=== PATIENT | female | born 1940 | race Caucasian/White ===

== ENCOUNTER → 2017-01-29 | Outpatient (CLI) | payer MEDICARE ==
[2017-01-29 09:24] LABS: Albumin 3.7 g/dL (3.4-5.0); BUN/Creatinine Ratio 21.5; Bilirubin, Total 0.7 mg/dL (0.2-1.0); Total Protein 7.8 g/dL (6.4-8.2)
== END | disposition home or self-care (01) ==
LOC: LAB 06:53
PROVIDERS: ATTEND Internal Medicine
DX: I10 Essential (primary) hypertension (principal); M79.89 Other specified soft tissue disorders; Z79.899 Other long term (current) drug therapy
CPT/HCPCS: 36415; 80053; 82465; 83036; 83718; 83721; 84443; 84478; 86141

== ENCOUNTER 2018-08-13 06:54 | Inpatient (IN) | payer MEDICARE | END 2018-08-16 15:00 | disposition home health service (06) | LOC: ER 06:54 → OVERFLOW 11:32 → WEST WING 17:50 | DX: L03.116 Cellulitis of left lower limb (principal); I10 Essential (primary) hypertension; M19.90 Unspecified osteoarthritis, unspecified site; I89.0 Lymphedema, not elsewhere classified; L03.115 Cellulitis of right lower limb ==

== ENCOUNTER → 2018-10-23 | Outpatient (CLI) | payer MEDICARE ==
[~2018-10-23] MED LIST: LISI10TA6 PO
== END | disposition home or self-care (01) ==
LOC: LAB 09:04
PROVIDERS: ATTEND Internal Medicine
DX: L03.116 Cellulitis of left lower limb (principal); I11.0 Hypertensive heart disease with heart failure; I50.9 Heart failure, unspecified
CPT/HCPCS: 36415; 82565; 84520

== ENCOUNTER 2018-12-17 09:35 | Inpatient (IN) | payer MEDICARE ==
[~2018-12-17] VITALS: Ht 162.6 cm; Wt 102.0 kg
[2018-12-17] MEDS ORDERED: SODIUM CHLORIDE 0.9% 1,000 ML IV ONE ×2 (10:01)
[2018-12-17] MEDS ORDERED: CLINDAMYCIN 600MG IV 50 ML IV ONE (10:15)
[2018-12-17] MEDS ORDERED: PIPERACILLIN-TAZOB 3.375GM 100 ML IV ONE (10:15)
[2018-12-17 10:20] LABS: Basophils # (auto) 0.1 uL; Basophils % (auto) 0.8 % (0.0-2.0); Eosinophils # (auto) 0.1 uL; Eosinophils % (auto) 1.1 % (0.0-7.0); Hematocrit 46.4 % (36.0-46.0); Hemoglobin 15.1 g/dL (12.2-16.2); Lymphocytes # (auto) 1.5 uL; Lymphocytes % (auto) 21.6 % (10.0-50.0); Mean Corpuscular Hemoglobin 28.6 pg (28.0-32.0); Mean Corpuscular Hgb Conc. 32.5 g/dL (32.0-36.0); Monocytes # (auto) 0.5 uL; Neutrophils # (auto) 4.8 uL; Neutrophils % (auto) 69.5 % (37.0-80.0); Platelet Count (auto) 332 10^3/uL (140-450); Red Blood Cells 5.27 10^6/uL (4.0-5.20); Red Cell Distribution Width 14.4 % (11.8-14.3); White Blood Cell 6.9 10^3/uL (4.4-10.8)
[2018-12-17 10:35] LABS: INR 1.03 (0.9-1.15); Partial Thromboplastin Time 31.3 sec (23.64-32.05)
[2018-12-17 10:41] LABS: Albumin 3.3 g/dL (3.4-5.0); Calcium 9.1 mg/dL (8.5-10.1); Potassium 3.7 mmol/L (3.5-5.1)
[2018-12-17 10:43] LABS: BUN/Creatinine Ratio 13.5
[2018-12-17 10:45] LABS: Bilirubin, Total 0.8 mg/dL (0.2-1.0); Total Protein 7.8 g/dL (6.4-8.2)
[2018-12-17 11:04] LABS: Urine Bacteria NONE SEEN /hpf (None Seen); Urine Blood Negative /uL (Negative); Urine Mucus FEW (None Seen); Urine Specific Gravity 1.011 (1.001-1.035); Urine WBC <1 /hpf (0 - 5)
[2018-12-17] MEDS: FUROSEMIDE 40 MG/4 ML VIAL IV ONE ×2 (13:00→13:51)
[2018-12-17] MEDS ORDERED: HYDROcodone-ACET 5/325MG TAB PO PRN (13:00)
[2018-12-17] MEDS ORDERED: MORPHINE SULF INJ 2 MG/ML SYRINGE 1ML IV PRN (13:00)
[2018-12-17] MEDS ORDERED: POTASSIUM CHL 20 Meq TABLET PO ONE (13:00)
[2018-12-17] MEDS ORDERED: ONDANSETRON HCL 4 MG/2 ML VIAL IV PRN (13:00)
[2018-12-17] MEDS ORDERED: VANCOMYCIN PER PHARMACY 0 MG IV SCH (13:00)
[2018-12-17] MEDS: POTASSIUM CHL 20 Meq TABLET PO SCH (13:51)
[2018-12-17] MEDS: VANCOMYCIN 500 MG in D5W 5% 100 ML IV SCH (16:24)
[2018-12-17 17:00] VITALS: BP 142/76
[2018-12-17] MEDS: PIPERACILLIN-TAZOB 3.375GM 100 ML IV SCH ×2 (18:25→23:40)
--- NOTE | 2018-12-17 20:00 | NUR ---
OPENING NOTE RECEIVED REPORT FROM DAYSHIFT RN. ASSUMING ROLE OF CARE OF PATIENT AT THIS TIME. PATIENT SHOWING NO SIGN OF DISTRESS, SHORTNESS OF BREATH, AND PATIENT DENIES ANY PAIN AT THIS TIME. PATIENT EDUCATED ON PLAN OF CARE FOR THE NIGHT AND PATIENT VERBALIZED UNDERSTANDING. DRESSINGS TO LOWER EXTREMITIES ARE CLEAN DRY AND INTACT AT THIS TIME. BED LOWERED, CALL LIGHT WITHIN REACH, AND PATIENT WILL BE ROUNDED ON EVERY HOUR AND NEEDED.
[2018-12-17] MEDS: GABAPENTIN 300 MG CAP PO SCH (21:08)
[2018-12-17 22:00] VITALS: BP 137/64
[2018-12-18] MEDS: VANCOMYCIN 500 MG in D5W 5% 100 ML IV SCH ×2 (04:00→18:00)
--- NOTE | 2018-12-18 04:30 | NUR ---
LEFT LEG DRESSING CHANGE LEFT LEG SHOWING DRAINAGE. DRESSING ON LEFT LEG CHANGED AND IS CLEAN DRY AND INTACT.
[2018-12-18 05:00] VITALS: BP 130/65
[2018-12-18] MEDS: PIPERACILLIN-TAZOB 3.375GM 100 ML IV SCH ×4 (05:27→23:31)
[2018-12-18 05:59] LABS: Basophils # (auto) 0.1 uL; Basophils % (auto) 1.2 % (0.0-2.0); Eosinophils # (auto) 0.1 uL; Eosinophils % (auto) 1.5 % (0.0-7.0); Hematocrit 40.9 % (36.0-46.0); Hemoglobin 13.5 g/dL (12.2-16.2); Lymphocytes # (auto) 1.5 uL; Lymphocytes % (auto) 24.7 % (10.0-50.0); Mean Corpuscular Hemoglobin 28.8 pg (28.0-32.0); Mean Corpuscular Volume 87.3 fL (80.0-100.0); Monocytes # (auto) 0.7 uL; Monocytes % (auto) 12.5 % (0.0-12.0); Neutrophils # (auto) 3.6 uL; Neutrophils % (auto) 60.1 % (37.0-80.0); Platelet Count (auto) 275 10^3/uL (140-450); Red Blood Cells 4.68 10^6/uL (4.0-5.20); Red Cell Distribution Width 14.3 % (11.8-14.3); White Blood Cell 5.9 10^3/uL (4.4-10.8)
[2018-12-18 06:21] LABS: Potassium 3.7 mmol/L (3.5-5.1)
[2018-12-18 06:25] LABS: BUN/Creatinine Ratio 12.9; Calcium 8.5 mg/dL (8.5-10.1)
[2018-12-18 08:04] VITALS: BP_SYST 147
--- NOTE | 2018-12-18 08:04 | NUR ---
Opening Shift Note Assumed care of patient, awake and alert. No S/S of distress/SOB or pain. Instructed on POC and to call for assist PRN, will continue to monitor for changes Q1hr and PRN.
[2018-12-18 09:00] VITALS: BP 132/65
[2018-12-18] MEDS: POTASSIUM CHL 20 Meq TABLET PO SCH (10:00)
[2018-12-18] MEDS: FUROSEMIDE 40 MG TAB PO SCH (10:00)
--- NOTE | 2018-12-18 10:20 | NUR ---
PATIENT REFUSING LASIX Patient refused Lasix. Patient was educated regarding the need for Lasix to help reduce swelling in both legs. Patient verbalized understanding. Patient stated that Lasix does not help her. Patient stated that she will take Lasix at home. Patient verbalized concerns about having to go pee a lot if she takes it here and not being able to get to the bathroom fast enough. Patient was offered bedside commode and was educated regarding using the call light if she needs to use the restroom. Patient verbalized understanding and continued to refuse Lasix.
[2018-12-18] MEDS: ENOXAPARIN SOD 40 MG/0.4 ML SYRINGE SC SCH (10:31)
[2018-12-18] MEDS: GABAPENTIN 300 MG CAP PO SCH ×2 (10:31→21:33)
[2018-12-18 13:00] VITALS: BP 131/69
--- NOTE | 2018-12-18 13:15 | NUR ---
at bedside Dr. Wallace at bedside discussing plan of care with patient and this RN.
--- NOTE | 2018-12-18 13:29 | NUR ---
Wedge Pillow Legs are elevated on a wedge pillow at this time per doctor's orders.
--- NOTE | 2018-12-18 16:30 | NUR ---
Call to Pharmacy [facility] is not on floor. Pharmacist states that it will be sent up soon.
--- NOTE | 2018-12-18 16:45 | NUR ---
WOUND CARE NOTE: Wound care consult received for cellulitis with left leg. Patient is a 78yo female admitted for left leg cellulitis. Patient with a history of chronic lymphedema, and questionable hypertension. Patient is alert and denies pain. Last Geovanni is 16. Patient with cellulitis and draining wound noted to left leg. Reviewed photos and discussed with bedside RNAzalea. Patient has been refusing prescribed diuretics. RECOMMENDATIONS: Dietary consult; Turn q2hrs; Nursing to cleanse bilateral lower extremities with mild soap and water, pat dry, cover open wounds to leg with OPTILOCK dressing, wrap with kerlex gauze, change every other day and PRN soiling; wound care team to follow. Addendum: 12/18/18 at 1906 by LUIS ENRIQUE LOUIE RN Amended: Links added.
[2018-12-18 16:55] VITALS: BP 128/63
--- NOTE | 2018-12-18 17:30 | NUR ---
Call to pharmacy Call to pharmacy at this time. Vanco is still not on floor. Pharmacist states that it will be up, "she left about 10 minutes ago." Asked pharmacist if it should be rescheduled. Pharmacist states, "No, just give it when you get it." Awaiting vanco dose.
--- NOTE | 2018-12-18 17:45 | NUR ---
Wound Care Changed patient's dressings to bilateral lower extremities at this time, using absorbent dressings from wound care. Left leg was beginning to weep through dressing. No distress noted.
--- NOTE | 2018-12-18 17:53 | NUR ---
Re: Vanco Dose Vanco has not been delivered to unit. Will administer 1800 antibiotic of zosyn at this time. Still awaiting zosyn dose.
--- NOTE | 2018-12-18 18:53 | NUR ---
Closing Shift Note Patient is resting in bed. Family at bedside. No distress noted. Will endorse care to the machinist 2nd shift RN.
--- NOTE | 2018-12-18 20:00 | NUR ---
RECEIVED PATIENT IN BED, AAOX4. NO DISTRESS NOTED. INTRODUCED MYSELF TO THE PATIENT. ORIENTATION DONE. AFEBRILE. NO SOB NOTED. BLE SWELLING WITH KERLIX DRESSING NOTED. POCS DISCUSSED WITH PATIENT AND SHOWED UNDERSTANDING. BED KEPT ON LOWEST POSITION. SIDE RAILS UP. CALL LIGHT/TABLE IN REACH. KEPT COMFORTABLE.
[2018-12-18 22:00] VITALS: BP 135/48
--- NOTE | 2018-12-18 23:00 | NUR ---
IV SITE IS RED AND PAINFUL PER PATIENT. REMOVED OLD IV ACCESS AND ASEPTIC DRESSING APPLIED. STARTED A NEW IV ACCESS ON THE LEFT WRIST, GAUGE 22. BENIGN AND PATENT.
[2018-12-19] MEDS: VANCOMYCIN 500 MG in D5W 5% 100 ML IV SCH (03:52)
[2018-12-19 05:00] VITALS: BP 123/53
[2018-12-19] MEDS: PIPERACILLIN-TAZOB 3.375GM 100 ML IV SCH ×3 (05:59→18:12)
--- NOTE | 2018-12-19 06:14 | NUR ---
ON BED, ASLEEP. NO DISTRESS NOTED. FOR MORE CARE AND MANAGEMENT.
[2018-12-19 08:00] VITALS: BP 130/67
--- NOTE | 2018-12-19 08:00 | NUR ---
Opening Shift Note Assumed care of patient, awake and alert. No S/S of distress/SOB. Patient reports 3/10 pain in her left leg. Patient refused pain medication at this time. Instructed on POC and to call for assist PRN, will continue to monitor for changes Q1hr and PRN.
[2018-12-19 09:00] VITALS: BP 130/67
[2018-12-19] MEDS: POTASSIUM CHL 20 Meq TABLET PO SCH (10:00)
[2018-12-19] MEDS: GABAPENTIN 300 MG CAP PO SCH ×2 (10:00→21:22)
[2018-12-19] MEDS: FUROSEMIDE 40 MG TAB PO SCH (10:00)
--- NOTE | 2018-12-19 10:00 | NUR ---
PATIENT REFUSING LASIX Patient educated regarding the use of Lasix to reduce swelling in both legs. Patient verbalized understanding. Patient continued to refuse Lasix.
[2018-12-19] MEDS: ENOXAPARIN SOD 40 MG/0.4 ML SYRINGE SC SCH (10:28)
--- NOTE | 2018-12-19 11:10 | NUR ---
Dr. Wallace at bedside with patient discussing plan of care. Dr. Wallace is aware that the patient is refusing Lasix.
--- NOTE | 2018-12-19 12:42 | NUR ---
D/C Planning Per SS consult for home health for wound care. Information and choice letter was given to Pt at bedside. Pt stated she is currently seeing a MD Suarez at [facility] Ph:( [phone]) [id number] [facility] [id number] on Mondays and Sunday-Sunday her helps her care for her wound. Pt stated at the moment she does not want home health service. Pt verbalize understanding. Informed SMILEY Tristan.
[2018-12-19 13:00] VITALS: BP 138/72
--- NOTE | 2018-12-19 13:56 | NUR ---
VANCOMYCIN DOSE CLARIFICATION Spoke with Jonas from pharmacy regarding clarification for vancomycin dose. Jonas stated the patient should be getting 1 gram and will D/C the other vancomycin order.
--- NOTE | 2018-12-19 14:40 | NUR ---
Wound care performed at this time on patient's left leg. Scant amount of blood and moderate amount of serous drainage noted. New Optilock placed with Kerlix per wound care nurse recommendation.Patient is not in distress at this time and has no complaints.
[2018-12-19] MEDS: VANCOMYCIN 1GM/250ML 250 ML IV SCH (16:50)
[2018-12-19 17:04] VITALS: BP 134/58
--- NOTE | 2018-12-19 19:21 | NUR ---
Closing Shift Note Patient is resting in bed. No distress noted. Report given. Will endorse care to the warehouse supervisor 3rd shift RN.
--- NOTE | 2018-12-19 19:40 | NUR ---
Opening Shift Note Report received from day shift RN. Assumed care of patient. Patient awake sitting in bed and alert x4. No S/S of distress/SOB noted. Patient complains of tolerable pain to her legs. Patient refuses any pain medication at this time. Dressings to both legs clean, dry, and intact. Instructed on POC and to call for assist PRN. Call light left within reach. Will continue to monitor for changes Q1hr and PRN.
[2018-12-19 23:45] VITALS: BP 130/50
[2018-12-20] MEDS: PIPERACILLIN-TAZOB 3.375GM 100 ML IV SCH ×3 (00:13→12:07)
[2018-12-20] MEDS: VANCOMYCIN 1GM/250ML 250 ML IV SCH (03:42)
[2018-12-20 05:25] VITALS: BP 147/64
--- NOTE | 2018-12-20 08:00 | NUR ---
RECEIVED PATIENT ALERT AND ORIENTED X4, NOT IN DISTRESS, CLEAR LS IN BILATERAL UPPER AND DIMINISHED IN LOWER LUNG LOBES, RR=18 ST=91% WITH O2 2L NC, HEART R=76, DENIED CHEST PAIN OR SOB, ABDOMEN SOFT AND ROUND WITH ACTIVE BS, LAST BM=12/18/18 REPORTED, GENERAL SKIN INTACT WARM TO TOUCH, RADIAL AND PEDAL PULSES PALPABLE, CAP REFILL <3 SECONDS, BILATERAL LEG WOUNDS COVERED WITH DRY AND INTACT DRESSING, AMBULATES TO WITH OUT ASSISTANCE, TOLERATING WELL, RESTING ON BED, HEAD OF BED ELEVATED, BED ON LOWER POSITION RAILS UP X2, CALL LIGHT ON REACH, WILL CONTINUE MONITORING.
[2018-12-20 09:00] VITALS: BP 136/59
[2018-12-20] MEDS: GABAPENTIN 300 MG CAP PO SCH ×2 (09:22→09:47)
[2018-12-20] MEDS: ENOXAPARIN SOD 40 MG/0.4 ML SYRINGE SC SCH (09:22)
[2018-12-20] MEDS: POTASSIUM CHL 20 Meq TABLET PO SCH ×2 (09:24→09:46)
[2018-12-20] MEDS: FUROSEMIDE 40 MG TAB PO SCH ×2 (09:24→09:46)
--- NOTE | 2018-12-20 11:00 | NUR ---
REFUSED AM PO MEDICATIONS, RESTING ON BED, NOT IN DISTRESS, DENIED PAIN, WILL CONTINUE MONITORING.
--- NOTE | 2018-12-20 12:10 | NUR ---
NOT IN DISTRESS, RESTING ON BED, PENDING D/C HOME TODAY.
[2018-12-20 12:20] VITALS: BP 130/67
[2018-12-20 13:00] VITALS: BP 146/73
--- NOTE | 2018-12-20 15:58 | NUR ---
D/C INSTRUCTIONS WERE GIVEN, VERBALIZED UNDERSTANDING, SS CONSULT PROVIDED ORDERED, FOLLOW UP APPOINTMENT WILL BE DONE BY CALLING FROM HOME REPORTED, MEDICATION PRESCRIPTIONS EDUCATION PROVIDED, VERBALIZED UNDERSTANDING, WOUND EVALUATION PICTURES TAKEN, WOUND DRESSING WAS CHANGED ORDERED, TOLERATED WELL, D/C IV SITE TOLERATED WELL, NOT IN DISTRESS, DENIED PAIN, VS T=97.7 RR=18 SA=92% P=76 LR=566/60, D/C HOME NO WC ACCOMPANIED BY , TOOK ALL BELONGINGS AND LEFT NOTING BEHIND.
== END 2018-12-20 18:51 | disposition home or self-care (01) | DRG 602 ==
LOC: ER 09:35 → OVERFLOW 09:36 → WEST WING 15:18
PROVIDERS: ADMIT Internal Medicine; ATTEND Internal Medicine
DX: L03.116 Cellulitis of left lower limb (principal); I50.33 Acute on chronic diastolic (congestive) heart failure; E66.01 Morbid (severe) obesity due to excess calories; I11.0 Hypertensive heart disease with heart failure; I89.0 Lymphedema, not elsewhere classified; Z68.38 Body mass index [BMI] 38.0-38.9, adult
CPT/HCPCS: 36415; 71046; 73700; 80048; 80053; 80202; 81001; 83605; 83880; 84484; 85025; 85610; 85730; 87040; 93970; 96361; 96365; 96367; G0378; J2543; J3490; J7060

== ENCOUNTER 2022-03-28 09:13 | Emergency (ER) | payer MEDICARE ==
[~2022-03-28] VITALS: Ht 162.6 cm; Wt 101.7 kg
[~2022-03-28 09:13] MED LIST changes: +LISI-716 PO; -LISI10TA6 PO
[2022-03-28 10:34] LABS: Basophils # (auto) 0.1 10 ^3/uL (0-0.2); Basophils % (auto) 0.8 % (0.0-2.0); Eosinophils # (auto) 0 10 ^3/uL (0-0.8); Eosinophils % (auto) 0.6 % (0.0-7.0); Hematocrit 44.2 % (36.0-46.0); Hemoglobin 14.6 g/dL (12.2-16.2); Lymphocytes # (auto) 1.1 10 ^3/uL (0.4-5.4); Lymphocytes % (auto) 16.5 % (10.0-50.0); Mean Corpuscular Hemoglobin 29.4 pg (28.0-32.0); Mean Corpuscular Hgb Conc. 33.1 g/dL (32.0-36.0); Monocytes # (auto) 0.5 10 ^3/uL (0-1.3); Monocytes % (auto) 7.2 % (0.0-12.0); Neutrophils # (auto) 5.1 10 ^3/uL (1.6-8.6); Neutrophils % (auto) 74.9 % (37.0-80.0); Red Blood Cells 4.97 10^6/uL (4.0-5.20); Red Cell Distribution Width 12.7 % (11.8-14.3); White Blood Cell 6.8 10^3/uL (4.4-10.8)
[2022-03-28 10:52] LABS: Albumin 3.8 g/dL (3.4-5.0); Calcium 9.5 mg/dL (8.5-10.1); Potassium 4.3 mmol/L (3.5-5.1)
[2022-03-28 10:56] LABS: BUN/Creatinine Ratio 19.5; Bilirubin, Total 0.6 mg/dL (0.2-1.0); Total Protein 8.2 g/dL (6.4-8.2)
[2022-03-28 11:41] LABS: Urine Bacteria NONE SEEN /hpf (None Seen); Urine Blood Negative /uL (Negative); Urine Specific Gravity 1.013 (1.001-1.035); Urine WBC 5 /hpf (0 - 5)
[2022-03-28 12:23] LABS: INR 1.05 (0.9-1.15); Partial Thromboplastin Time 34.5 sec (24.6-33.4)
[2022-03-28 18:27] LABS: Basophils # (auto) 0.1 10 ^3/uL (0-0.2); Basophils % (auto) 0.8 % (0.0-2.0); Eosinophils # (auto) 0.1 10 ^3/uL (0-0.8); Eosinophils % (auto) 0.7 % (0.0-7.0); Hematocrit 44.5 % (36.0-46.0); Hemoglobin 14.6 g/dL (12.2-16.2); Lymphocytes # (auto) 1.7 10 ^3/uL (0.4-5.4); Lymphocytes % (auto) 19.9 % (10.0-50.0); Mean Corpuscular Hemoglobin 29.6 pg (28.0-32.0); Mean Corpuscular Hgb Conc. 32.7 g/dL (32.0-36.0); Mean Corpuscular Volume 90.3 fL (80.0-100.0); Monocytes # (auto) 0.7 10 ^3/uL (0-1.3); Monocytes % (auto) 7.8 % (0.0-12.0); Neutrophils # (auto) 6.1 10 ^3/uL (1.6-8.6); Neutrophils % (auto) 70.8 % (37.0-80.0); Nucleated Red Blood Cells % 0.4 %; Red Blood Cells 4.94 10^6/uL (4.0-5.20); Red Cell Distribution Width 12.9 % (11.8-14.3); White Blood Cell 8.6 10^3/uL (4.4-10.8)
[2022-03-28 18:42] LABS: Albumin 3.6 g/dL (3.4-5.0); Calcium 9.6 mg/dL (8.5-10.1); Potassium 4.2 mmol/L (3.5-5.1)
[2022-03-28 18:44] LABS: BUN/Creatinine Ratio 22.4
[2022-03-28 18:47] LABS: Bilirubin, Total 0.7 mg/dL (0.2-1.0); Total Protein 7.3 g/dL (6.4-8.2)
[2022-03-28 19:55] LABS: INR 1.07 (0.9-1.15)
[2022-03-28] MEDS ORDERED: IOHEXOL 350 MG/ML 100ML IJ ONE (19:59)
[2022-03-28 20:00] VITALS: BP 135/52
[2022-03-28] MEDS ORDERED: DOXYCYCLINE 100 MG TAB/CAP PO ONE (21:15)
[2022-03-28] MEDS ORDERED: SILV1CRE98 EX (21:37)
[2022-03-28] MEDS ORDERED: DOXY-286 PO (21:37)
== END 2022-03-28 21:57 | disposition home or self-care (01) ==
LOC: ER 09:13
DX: L03.116 Cellulitis of left lower limb (principal); N28.89 Other specified disorders of kidney and ureter; R91.1 Solitary pulmonary nodule; I10 Essential (primary) hypertension; R51.9 Headache, unspecified; Z20.822 Contact with and (suspected) exposure to COVID-19
CPT/HCPCS: 36415; 70450; 71045; 71275; 80053; 81001; 83605; 83735; 83880; 84484; 85025; 85379; 85610; 85730; 87040; 87426; 93005; 93970; 99285; Q9967

== ENCOUNTER → 2022-04-04 | Outpatient (CLI) | payer MEDICARE ==
[~2022-04-04] MED LIST changes: +DOXY-286 PO; +SILV1CRE98 EX
== END | disposition home or self-care (01) ==
LOC: LAB 10:56
PROVIDERS: ATTEND Internal Medicine
DX: R63.5 Abnormal weight gain (principal); N28.89 Other specified disorders of kidney and ureter; R91.1 Solitary pulmonary nodule
CPT/HCPCS: 36415; 82565; 84443

== ENCOUNTER 2025-01-09 08:10 | Inpatient (IN) | payer MEDICARE ==
[~2025-01-09] VITALS: Ht 162.6 cm; Wt 100.1 kg
[~2025-01-09 08:10] MED LIST changes: -LISI-716 PO; +LISI10TA34 PO
--- NOTE | 2025-01-09 08:47 | ED.PDOC ---
History of Present Illness(SKN HPI Comments 84 y.o female with PMHx of lymphedema, presents to the ED for an evaluation of wound check on lower extremity. Patient has a home health care whole wraps patient's legs daily and noticed swelling with possible swelling given oozing wounds with a possible insect bite on the posterior thigh. Patient also states nurse wrapped her legs today but noticed maggots to wound site. No chills, nausea, vomiting reported. Patient did have a fever last week but presents afebrile upon ED arrival. Chief Complaint: Lower Extremity Time Seen by MD: 08:37 Primary Care Provider: WILI History of Present Illness: Nurses Notes, Medications, Allergies Allergies: Coded Allergies: NO KNOWN ALLERGIES (Unverified , 08/13/18) Home Meds Active Scripts Silver Sulfadiazine (Ssd) 1 % Cre, 1 % EX BID for 14 Days, #100 CRE Prov:CAMDENLISAJILLIANJESSICA S DO 03/28/22 Doxycycline Hyclate (DOXYCYCLINE HYCLATE) 100 Mg Tab, 1 TAB PO BID for 14 Days, #28 TAB Prov:CAMDENLISACASANDRA DO 03/28/22 Reported Medications Lisinopril (Lisinopril) 10 Mg Tab, 10 MG PO DAILY for 30 Days, MG 08/14/18 Information Source: Patient, Friend Mode of Arrival: Wheelchair Severity: Moderate Duration: Since onset Location: Extremities, Leg Mechanism: Preceding Wound Object: None Condition of Object: None Wound Type: Abscess Associated Signs and Symptoms: Redness, Swelling, Pain Past Medical History PAST MEDICAL HISTORY: HTN Past Medical History (Other): lymphedema Surgical History: Denies all surgeries RUBBER MOLD MAKER History: No Pertinent RUBBER MOLD MAKER History Family History Family History: Family hx of HTN, Family hx of stroke Social History Smoker: Non-Smoker Alcohol: Denies ETOH Use Drugs: Other Lives In: Home Constitutional: denies: chills, diaphoresis, fatigue, fever, malaise, sweats, weakness, others EENTM: denies: blurred vision, double vision, ear bleeding, ear discharge, ear drainage, ear pain, ear ringing, eye pain, eye redness, hearing loss, mouth pain, mouth swelling, nasal discharge, nose bleeding, nose congestion, nose pain, photophobia, tearing, throat pain, throat swelling, voice changes, others Respiratory: denies: cough, hemoptysis, orthopnea, SOB at rest, shortness of breath, SOB with excertion, stridor, wheezing, others Cardiovascular: denies: chest pain, dizzy spells, diaphoresis, Dyspnea on exertion, edema, irregular heart beat, left arm pain, lightheadedness, palpitations, PND, syncope, others Gastrointestinal: denies: abdomen distended, abdominal pain, blood streaked bowels, constipated, diarrhea, dysphagia, difficulty swallowing, hematemesis, melena, nausea, poor appetite, poor fluid intake, rectal bleeding, rectal pain, vomiting, others Genitourinary: denies: abnormal vagina bleeding, burning, dyspareunia, dysuria, flank pain, frequency, hematuria, incontinence, pain, , vagina discharge, urgency, others Neurological: denies: dizziness, fainting, headache, left sided numbness, left sided weakness, numbness, paresthesia, pre-existing deficit, right sided numbness, right sided weakness, seizure, speech problems, tingling, tremors, weakness, others Musculoskeletal: denies: back pain, gout, joint pain, joint swelling, muscle pain, muscle stiffness, neck pain, others Integumetry: reports: wounds; denies: bruises, change in color, change in hair/nails, dryness, laceration, lesions, lumps, rash, others Allergic/Immunocompromised: denies: Difficulty Healing, Frequent Infections, Hives, Itching, others Hematologic/Lymphatic: denies: anemia, blood clots, easy bleeding, easy bruising, swollen glands, others Endocrine: denies: excessive hunger, excessive sweating, excessive thirst, excessive urination, flushing, intolerance to cold, intolerance to heat, unexplained weight gain, unexplained weight loss, others Psychiatric: denies: anxiety, bipolar disorder, depression, hopeless, panic disorder, schizophrenia, sleepless, suicidal, others All Other Systems: Reviewed and Negative Physical Exam General Appearance: Moderate Distress, Obese HEENT: Normal ENT Inspection, Pharynx Normal, TMs Normal Neck: Full Range of Motion, Non-Tender, Normal, Normal Inspection Respiratory: Chest Non-Tender, Lungs Clear, No Accessory Muscle Use, No Respiratory Distress, Normal Breath Sounds Cardiovascular: No Edema, No JVD, No Murmur, No Gallop, Normal Peripheral Pulses, Regular Rate/Rhythm Breast Exam: Deferred Gastrointestinal: No Organomegaly, Non Tender, No Pulsatile Mass, Normal Bowel Sounds, Soft Genitalia: Deferred Pelvic: Deferred Rectal: Deferred Extremities: Inflammation, Normal capillary refill, Pedal edema, Other (There wounds to the back of the left leg as well.) Musculoskeletal : Apperance: Normal Neurologic: Alert, paving stone installer II-XII nml as Tested, No Motor Deficits, Normal Affect, Normal Mood, No Sensory Deficits Cerebellar Function: Normal Reflexes: Normal Skin: Dry, Normal Color, Warm Lymphatic: No Adenopathy Was a procedure done? Was a procedure done?: No Differential Diagnosis (INTG) Differential Diagnosis: Cellulitis Differential Diagnosis: Abscess, Erythema multiforme, Erysipelas, Gangrene X-Ray, Labs, Meds, VS Vital Signs Date Time Temp Pulse Resp B/P (MAP) Pulse Ox O2 Delivery O2 Flow Rate FiO2 01/09/25 08:13 97.7 87 18 140/74 96 97.7 Lab Test 01/09/25 09:20 Range/Units White Blood Count 7.2 4.4-10.8 10^3/uL Red Blood Count 4.49 4.0-5.20 10^6/uL Hemoglobin 13.3 12.2-16.2 g/dL Hematocrit 39.4 36.0-46.0 % Mean Corpuscular Volume 87.8 80.0-100.0 fL Mean Corpuscular Hemoglobin 29.6 28.0-32.0 pg Mean Corpuscular Hemoglobin Concent 33.7 32.0-36.0 g/dL Red Cell Distribution Width 13.8 11.8-14.3 % Platelet Count 244 140-450 10^3/uL Mean Platelet Volume 9.5 6.9-10.8 fL Neutrophils (%) (Auto) 37.0-80.0 % Lymphocytes (%) (Auto) 10.0-50.0 % Monocytes (%) (Auto) 0.0-12.0 % Basophils (%) (Auto) 0.0-2.0 % Neutrophils # (Auto) 1.6-8.6 10 ^3/uL Lymphocytes # (Auto) 0.4-5.4 10 ^3/uL Monocytes # (Auto) 0-1.3 10 ^3/uL Differential Total Cells Counted Pending Neutrophils % (Manual) Pending Band Neutrophils % (Manual) Pending Lymphocytes % (Manual) Pending Monocytes % (Manual) Pending Eosinophils % (Manual) Pending Basophils % (Manual) Pending Metamyelocytes % (manual) Pending Myelocytes % (Manual) Pending Promyelocytes % (Manual) Pending Blast Cells % (Manual) Pending Reactive Lymphocytes Pending Platelet Estimate Pending Sodium Level Pending Potassium Level Pending Chloride Level Pending Carbon Dioxide Level Pending Anion Gap Pending Blood Urea Nitrogen Pending Creatinine Pending Glomerular Filtration Rate Calc Pending BUN/Creatinine Ratio Pending Serum Glucose Pending Calcium Level Pending Current Medications Medications (Trade) Dose Ordered Sig/Andrew Route Start Time Stop Time Status Last Admin Sodium Chloride 500 ml @ 500 mls/hr Q1H ONCE IV 01/09/25 09:15 01/09/25 10:14 DC 01/09/25 09:24 IV Hep-Lock was established The patient was given normal saline at a 500 cc bolus The CBC is within normal limits The patient was given clindamycin IV piggyback We did get a wound culture on this patient The patient will be admitted to the hospitalist. Images Reviewed?: Images reviewed and evaluated by me Time of 1ST Reevaluation: 09:00 Reevaluation 1ST: Unchanged Patient Education/Counseling: Diagnosis, Treatment, Prognosis Family Education/Counseling: Diagnosis, Treatment, Prognosis SEPSIS Sepsis Screen Date sepsis recognized/suspect: Jan 09, 2025 Time Sepsis recognized/suspect: 814 Recent Procedure: No On Antibiotic Therapy: No Respiratory Rate >20: No Heart Rate >90: No Temp<36 C (96.8 F) or >38.3 C: No SBP <90 or MAP <65 mmHG: No New Acute Mental Status Change: No Is the patient on CPAP, BIPAP,: No Physician Orders Complete Blood Count (01/09/25 09:06) Urinalysis (01/09/25 09:06) Basic Metabolic Panel (01/09/25 09:06) Heplock Iv (01/09/25 09:06) Payroll Accounting Clerk (01/09/25 09:06) Blood Pressure (01/09/25 09:06) Pulse Oximetry (01/09/25 09:06) Blood Culture (01/09/25 09:06) Lactic Acid W/ Reflex Order (01/09/25 09:06) Bilat Lower Dvt (01/09/25 09:06) Manual Differential (01/09/25 09:20) Vital Signs Date Time Temp Pulse Resp B/P (MAP) Pulse Ox O2 Delivery O2 Flow Rate FiO2 01/09/25 08:13 97.7 87 18 140/74 96 97.7 Laboratory Tests Test 01/09/25 09:20 White Blood Count 7.2 10^3/uL (4.4-10.8) Medications Medications Dose Ordered Sig/Andrew Route Start Time Stop Time Status Last Admin Dose Admin Sodium Chloride 500 ml @ 500 mls/hr Q1H ONCE IV 01/09/25 09:15 01/09/25 10:14 DC 01/09/25 09:24 Departure 1 Departure Time of Disposition: 11:01 Impression: Primary Impression: Bilateral lower leg cellulitis Disposition: ADMITTED INPATIENT Admit to: Med Surg Condition: Fair Critical Care Note Critical Care Time?: No Stability Stability form required: Yes Unstable for transfer: ED Physician Assesment (Clinical assesment) I personally scribed for SURJIT TELLEZ MD ([email or web address]) on 01/09/25 at 08:47. Electronically submitted by Jory Hobbs ([facility]). I personally scribed for SURJIT TELLEZ MD ([email or web address]) on 01/09/25 at 09:01. Electronically submitted by Jory Hobbs ([facility]). SURJIT TELLEZ MD Jan 09, 2025 08:47
[2025-01-09] MEDS: SODIUM CHLORIDE 0.9% 500 ML IV ONE (09:24)
[2025-01-09 09:59] LABS: Hematocrit 39.4 % (36.0-46.0)
[2025-01-09 10:04] LABS: Hemoglobin 13.3 g/dL (12.2-16.2); Mean Corpuscular Hemoglobin 29.6 pg (28.0-32.0); Mean Corpuscular Volume 87.8 fL (80.0-100.0)
--- NOTE | 2025-01-09 10:18 | DVH ---
CLINICAL HISTORY: pain TECHNIQUE: Color and duplex doppler imagine of the bilateral lower extremity veins was performed. Vessel compression and augmentation if possible was also performed. COMPARISON: BI LOWER DVT on DOS: 03/28/22, BLDVT on DOS: 03/28/22 FINDINGS: Right Lower Extremity: Right common femoral vein: Normal compressibility and flow. Right superficial femoral vein: Normal compressibility and flow. Right popliteal vein: Normal compressibility and flow. Proximal calf veins demonstrate flow. Left Lower Extremity: Left common femoral vein: Normal compressibility and flow. Left superficial femoral vein: Normal compressibility and flow. Left popliteal vein: Normal compressibility and flow. Proximal calf veins demonstrate flow. IMPRESSION: NO SONOGRAPHIC EVIDENCE FOR DEEP VENOUS THROMBOSIS IN THE BILATERAL LOWER EXTREMITY VEINS.
[2025-01-09] MEDS: CLINDAMYCIN 600MG IV 50 ML IV ONE (11:00)
[2025-01-09 11:14] LABS: Total Cells Counted 100.0 (100)
[2025-01-09 11:30] LABS: Anion Gap 10 (5-15); Carbon Dioxide 28 mmol/L (20-31); Chloride 102 mmol/L (98-107); Potassium 4.7 mmol/L (3.5-5.1); Sodium 140 mmol/L (136-145)
[2025-01-09] MEDS ORDERED: ONDANSETRON HCL 4 MG/2 ML VIAL IV PRN (11:30)
[2025-01-09 11:33] LABS: Calcium 9.2 mg/dL (8.7-10.4)
--- NOTE | 2025-01-09 11:33 | DVHHP2 ---
History of Present Illness Reason for Visit: Bilateral lower extremity wounds rule out cellulitis History of Present Illness Adriane Burris is an 84-year-old female with past medical history of hyperte nsion and lymphedema who presents to the ED with bilateral lower extremity wounds with swelling and now open wounds. Patient reports that this has been ongoing since 2010 and has a home health RN who comes in to manage her wounds. Her executive trust MINGO Townsend is at the chair side. Patient reports that the wound started to open up about 3 weeks ago and her home health RN told her to go to the hospital to get it evaluated. She was also complaining of left upper thigh wound thinks that it may be a bug bite. Patient reports that she ambulates with a front wheel walker but is seen in ED on a wheelchair. Patient reports that the pain on her left thigh is 9/10 painful and itchy with the it being intermittent nature. Patient reports that her lower extremity pain feels like nerve pain and is constant. Patient denies any recent trauma or injury, recent sick contacts, recent travels, recent ingestion of spoiled food, chest pain, shortness of breath, fever, chills, lightheadedness, weakness, dizziness, abdominal pain, nausea, vomiting, diarrhea, or urinary symptoms. Cardiovascular: HTN Past Medical History Lymphedema Past Surgical History: None Family History: DM, Hypertension, Other (Mom with hypertension diabetes and stroke.) Smoke: No ALCOHOL: none Drugs: None Lives: Alone Domestic Violence: Neg Review of Systems Skin: Lesions Allergies: Coded Allergies: NO KNOWN ALLERGIES (Unverified , 08/13/18) Exam Vital Signs Vital Signs Date Time Temp Pulse Resp B/P (MAP) Pulse Ox O2 Delivery O2 Flow Rate FiO2 01/09/25 08:13 97.7 87 18 140/74 96 97.7 General Appearance: Alert, Oriented X3, Cooperative, No acute distress HEENT: Atraumatic, PERRLA, EOMI, Mucous membr. moist/pink Respiratory: Normal air movement Cardiovascular: Normal S1, Normal S2 Abdominal: Normal bowel sounds, Soft Neuro: Normal speech, Sensation intact Psych/Mental Status: Mental status NL, Mood NL Labs/Xrays Labs Test 01/09/25 10:45 01/09/25 09:20 Range/Units White Blood Count 7.2 4.4-10.8 10^3/uL Red Blood Count 4.49 4.0-5.20 10^6/uL Hemoglobin 13.3 12.2-16.2 g/dL Hematocrit 39.4 36.0-46.0 % Mean Corpuscular Volume 87.8 80.0-100.0 fL Mean Corpuscular Hemoglobin 29.6 28.0-32.0 pg Mean Corpuscular Hemoglobin Concent 33.7 32.0-36.0 g/dL Red Cell Distribution Width 13.8 11.8-14.3 % Platelet Count 244 140-450 10^3/uL Mean Platelet Volume 9.5 6.9-10.8 fL Neutrophils (%) (Auto) 37.0-80.0 % Lymphocytes (%) (Auto) 10.0-50.0 % Monocytes (%) (Auto) 0.0-12.0 % Basophils (%) (Auto) 0.0-2.0 % Neutrophils # (Auto) 1.6-8.6 10 ^3/uL Lymphocytes # (Auto) 0.4-5.4 10 ^3/uL Monocytes # (Auto) 0-1.3 10 ^3/uL Differential Total Cells Counted 100.0 100 Neutrophils % (Manual) 70 37.0-80.0 Band Neutrophils % (Manual) 1 Lymphocytes % (Manual) 19 10.0-50.0 Monocytes % (Manual) 9 0-12 Eosinophils % (Manual) 1 0-7 Basophils % (Manual) 0 0.0-2.0 Metamyelocytes % (manual) 0 Myelocytes % (Manual) 0 Promyelocytes % (Manual) 0 Blast Cells % (Manual) 0 Reactive Lymphocytes 0 Platelet Estimate Adequate Large Platelets Few CLINICAL HISTORY: pain TECHNIQUE: Color and duplex doppler imagine of the bilateral lower extremity veins was performed. Vessel compression and augmentation if possible was also performed. COMPARISON: BI LOWER DVT on DOS: 03/28/22, BLDVT on DOS: 03/28/22 FINDINGS: Right Lower Extremity: Right common femoral vein: Normal compressibility and flow. Right superficial femoral vein: Normal compressibility and flow. Right popliteal vein: Normal compressibility and flow. Proximal calf veins demonstrate flow. Left Lower Extremity: Left common femoral vein: Normal compressibility and flow. Left superficial femoral vein: Normal compressibility and flow. Left popliteal vein: Normal compressibility and flow. Proximal calf veins demonstrate flow. IMPRESSION: NO SONOGRAPHIC EVIDENCE FOR DEEP VENOUS THROMBOSIS IN THE BILATERAL LOWER EXTREMITY VEINS. SEPSIS Sepsis Screen Date sepsis recognized/suspect: Jan 09, 2025 Time Sepsis recognized/suspect: 814 Recent Procedure: No On Antibiotic Therapy: No Respiratory Rate >20: No Heart Rate >90: No Temp<36 C (96.8 F) or >38.3 C: No SBP <90 or MAP <65 mmHG: No New Acute Mental Status Change: No Is the patient on CPAP, BIPAP,: No Physician Orders Urinalysis (01/09/25 09:06) Basic Metabolic Panel (01/09/25 09:06) Heplock Iv (01/09/25 09:06) Box Person (01/09/25 09:06) Blood Pressure (01/09/25 09:06) Pulse Oximetry (01/09/25 09:06) Blood Culture (01/09/25 09:06) Lactic Acid W/ Reflex Order (01/09/25 09:06) Bilat Lower Dvt (01/09/25 09:06) * Wound Consult (01/09/25 ) Clindamycin 600mg Iv (Cleocin Iv) (01/09/25 11:00) Vital Signs Date Time Temp Pulse Resp B/P (MAP) Pulse Ox O2 Delivery O2 Flow Rate FiO2 01/09/25 08:13 97.7 87 18 140/74 96 97.7 Laboratory Tests Test 01/09/25 09:20 01/09/25 10:45 White Blood Count 7.2 10^3/uL (4.4-10.8) Lactic Acid Level Pending Medications Medications Dose Ordered Sig/Andrew Route Start Time Stop Time Status Last Admin Dose Admin Sodium Chloride 500 ml @ 500 mls/hr Q1H ONCE IV 01/09/25 09:15 01/09/25 10:14 DC 01/09/25 09:24 500 MLS/HR Assessment/Plan Assessment/Plan Assessment Bilateral lower extremity wounds rule out cellulitis Obesity History of hypertension History of lymphedema Plan Admit to med surge Antiemetics Pain management IV antibiotics-clindamycin given in ED Ceftriaxone + clindamycin Wound culture with Gram stain NS 500 cc given in ED Wound culture Bilateral lower extremity venous ultrasound Manual differential Lactic Blood culture CRP UA Diet Home medications reconciled DVT prophylaxis-Lovenox PUD prophylaxis-not indicated history of GERD or GI bleed Discussed plan of care with patient and nurse [id number] Preventive counseling healthy eating habits, physical activity, and regular checkups Plan discussed with: Patient, Other Date of Service: Jan 09, 2025 Billing Provider: RADHA NELSON Common Visit Codes: [id number] INP/OBS CARE (HIGH) Secondary Visit Codes: [id number] COUNSELING IND RADHA NELSON Jan 09, 2025 11:33
[2025-01-09 11:36] LABS: Glucose 96 mg/dL (74-106)
[2025-01-09 11:41] LABS: BUN/Creatinine Ratio 18.2 (10.0-20.0)
[2025-01-09 11:42] LABS: Blood Urea Nitrogen 14 mg/dL (9-23)
[2025-01-09 14:26] VITALS: PULSE 93; RESP 35; O2SAT 96
[2025-01-09] MEDS: HYDROcodone-ACET 5/325MG TAB PO PRN (15:17)
[2025-01-09 15:51] LABS: Urine Protein, UAD Negative (Negative)
[2025-01-09 18:16] VITALS: PULSE 104; RESP 19; O2SAT 97
[2025-01-09 20:00] VITALS: PULSE 99; RESP 20; O2SAT 94
[2025-01-09 21:00] VITALS: BP 136/61; PULSE 99; RESP 20; TEMP 98.1; O2SAT 94
[2025-01-09] MEDS: ACETAMINOPHEN 325 MG TAB PO PRN (21:33)
[2025-01-10 01:00] VITALS: BP 134/75; PULSE 101; RESP 19; TEMP 97.8; O2SAT 94
[2025-01-10] MEDS ORDERED: ENOXAPARIN SOD 40 MG/0.4 ML SYRINGE SC SCH (10:00)
== END 2025-01-10 02:12 | disposition left against medical advice (07) | DRG 603 ==
LOC: ER 08:10 → OVERFLOW 11:29 → WEST WING 18:00
DX: L03.116 Cellulitis of left lower limb (principal); E66.9 Obesity, unspecified; L03.115 Cellulitis of right lower limb; I10 Essential (primary) hypertension; K21.9 Gastro-esophageal reflux disease without esophagitis; Z68.37 Body mass index [BMI] 37.0-37.9, adult; Z53.29 Procedure and treatment not carried out because of patient's decision for other reasons; Z83.3 Family history of diabetes mellitus; Z82.49 Family history of ischemic heart disease and other diseases of the circulatory system; Z82.3 Family history of stroke
CPT/HCPCS: 36415; 80048; 81001; 83605; 85007; 85027; 86141; 87040; 87086; 93970; 96361; 96365; G0378; J3490